=== PATIENT | female | born 1980 | race Caucasian/White ===

== ENCOUNTER 2020-07-22 13:19 | Outpatient (CLI) | payer BC, SELFPAY | END 2020-07-22 13:20 | disposition home or self-care (01) | LOC: ANHSURGERY 13:24 | PROVIDERS: Visit Provider Obstetrics & Gynecology | DX: Z01.812 Encounter for preprocedural laboratory examination (principal); R10.2 Pelvic and perineal pain | CPT/HCPCS: 36415; 86850; 86900; 86901 ==

== ENCOUNTER 2020-07-24 02:29 | Day surgery (SDC) | payer BC, SELFPAY ==
[2020-07-15 14:04] VITALS: BMI 47.2
[2020-07-24] VITALS (12 sets, daily range): BP systolic 120–167; BP diastolic 68–96; PULSE 80–107; RESP 14–24; TEMP 36–36.7; O2SAT 94–100
--- NOTE | 2020-07-24 04:21 | PM.IMHP ---
H&P: HPI History of Present Illness Date/Time: 07/24/20 04:21 Patient is a using tubal sterilization for control. She has a long history of menorrhagia and dysfunctional uterine bleeding and severe dysmenorrhea. She has tried IUD in the past did not do well with the IUD. She started having increasing menorrhagia with heavy and prolonged periods in 2019. She has been receiving iron infusion. She had a pelvic ultrasound in February which showed endometrium mildly thickened which was is not uncommon but she does have a strong family history of endometrial cancer with her mother. She had a subsequent endometrial biopsy in Mar 2020 which was negative for hyperplasia or cancer. It showed proliferative endometrium with synctial metaplasia. She was offered an endometrial ablation by prior provider and declined due to concern for possible difficulty with being able to evaluate the endometrium in the future after the ablation, with her being at increased risk for endometrial cancer. She has a long history of anemia which may be due in part to prior gastric bypass and history of menorrhagia. She also has severe dysmenorrhea. 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 She was started on the DepoProvera in 2020 which did help the menorrhagia. She stated the dysmenorrhea was still present. She does not want to continue the DepoProvera indefinitely and continues to desire definitive treatment with hysterectomy. She does have urine leakage and has been evaluated and not a candidate for sling. She does have a history years ago where she was told she had an elevated homocysteine level and was concerned regarding risk of venous thromboembolism. The subsequent homocysteine level corrected with increase folic acid. She has taken increase folic acid since gastric bypass. She has been counseled regarding surgical options of hysterectomy to include robotic assisted laparoscopic versus LAVH or abdominal hysterectomy. She desires to keep her cervix. She is afraid that sex may feel different with the cervix gone. She has been informed of risk and benefit of supracervical vs total hysterectomy. She has been recommended to keep her ovaries. She has been informed of risk of future intervention if any abnormality with ovaries that may require surgical intervention. Informed of risk of early menopause. She desires to keep ovaries unless concern for abnormality of one or both ovaries. Chief Complaint: Heavy and prolonged bleeding and cramping. Review of Systems Review of Systems: All systems reviewed & are unremarkable except as noted in HPI and below Cardiovascular: Cardiovascular: Reports no additional cardiovascular complaints, Denies chest pain and Denies dyspnea Respiratory: Respiratory: Reports no additional respiratory complaints and Denies dyspnea Gastrointestinal: Gastrointestinal: Reports abdominal pain, Denies change in bowel habits, Denies diarrhea, Denies nausea and Denies vomiting Genitourinary: Genitourinary: Reports pelvic pain Musculoskeletal: Musculoskeletal: Reports back pain Integumentary/Breasts: Skin/Breast: Reports system reviewed and no additional complaints, except as docu Neurologic: Reports system reviewed and no additional complaints, except as documented Endocrine: Endocrine: Reports no additional endocrine complaints Hematologic/Lymphatic: Hematologic/Lymphatic: Reports no additional hematologic/lymphatic complaints PMFSH Past Medical History Medical History Anxiety and depression Asthma Eating disorder Environmental allergies Hypothyroidism Surgical History Surgical History H/O tubal ligation History of section History of cholecystectomy History of gastric bypass [place] teeth removed Family History Family His
[2020-07-24 06:48] LABS: Hematocrit 41.9 % (37.0-47.0); Hemoglobin 14.4 g/dL (12.0-15.0); Mean Corpuscular HGB Conc 34.4 g/dl (32-36); Mean Corpuscular Hemoglobin 28.6 pg (26-34); Mean Corpuscular Volume 83.3 fl (80-100); Mean Platelet Volume 9.5 fl (7.4-10.4); Platelet Count Result 232 k/mm3 (150-375); Red Blood Count 5.03 M/mm3 (4.2-5.4); White Blood Count 8.3 K/mm3 (4.5-10.0)
--- NOTE | 2020-07-24 06:55 | WPDANESEPPF ---
Anes - Initial Pre Proc Eval Procedure: Operation Date: 07/24/20 07:30 Proposed Procedures p Robotic Assisted Hysterectomy With Bilateral Salpingectomy - Layo Orozco MD Date/Time: 07/24/20 06:55 Surgeon: Layo Orozco MD Pre Op Diagnosis: Abn Bleeding, Pelvic Pain Patient Data Age: 39 Gender: F Height: 5 ft 4 in Weight: 122.4 kg Allergies Allergy/AdvReac Type Severity Reaction Status Date / Time clavulanic acid Allergy Severe SEVERE Verified 07/24/20 06:06 NAUSEA AND VOMITING meloxicam Allergy Severe Rash Verified 07/24/20 06:06 latex Allergy Mild RASH Verified 07/24/20 06:06 tomato Allergy Mild Rash Verified 07/24/20 06:06 doxycycline Allergy Unknown Nausea and Verified 07/24/20 06:06 Vomiting NSAIDS (Non-Steroidal Allergy Unknown Rash Verified 07/24/20 06:06 Anti-Inflamma Home Medications Medication Instructions Recorded Confirmed Type hydroxyzine HCl 10 mg tablet 10 mg PO DAILY 04/10/20 07/24/20 History hydroxyzine HCl 25 mg tablet 25 mg PO HS 04/10/20 07/24/20 History levocetirizine 5 mg tablet 5 mg PO HS 04/10/20 07/24/20 History naltrexone 8 mg-bupropion 90 mg 1 tablet PO BID 04/10/20 07/24/20 History tablet,extended release medroxyprogesterone 150 mg/mL 150 mg IM [id number] #1 ml 04/24/20 07/23/20 Rx intramuscular suspension oxybutynin chloride 10 mg PO HS 07/15/20 07/24/20 History albuterol sulfate 90 mcg/actuation 1 inh INHALATION Q4H PRN 07/22/20 07/24/20 History aerosol inhaler multivitamin 1 tablet PO DAILY 07/22/20 07/24/20 History Laboratory Tests 07/24/20 06:41 WBC 8.3 K/mm3 K/mm3 (4.5-10.0) RBC 5.03 M/mm3 M/mm3 (4.2-5.4) Hgb 14.4 g/dL g/dL (12.0-15.0) Hct 41.9 % % (37.0-47.0) MCV 83.3 fl fl (80-100) MCH 28.6 pg pg (26-34) MCHC 34.4 g/dl g/dl (32-36) RDW 15.0 % H % (11.5-14.5) Plt Count 232 k/mm3 k/mm3 (150-375) MPV 9.5 fl fl (7.4-10.4) Patient hx anesthesia problems: other (vertigo) Family hx anesthesia problems: none PMFSH Past Medical History Medical History Anxiety and depression Asthma Eating disorder Environmental allergies Hypothyroidism Surgical History Surgical History H/O tubal ligation History of section History of cholecystectomy History of gastric bypass [place] teeth removed Family History Family History Mother Hypertension Family history of diabetes mellitus in first degree relative Family history of malignant neoplasm of uterus Father Family history of kidney disease Family history of chronic obstructive pulmonary disease Family history of heart disease in male family member before age 55 Other Diabetes mellitus Social History Social History Smoking status: Never smoker Second hand tobacco smoke exposure: No Alcohol intake: never Living arrangements: with family Gender identity (if verbalized by the patient): Female Spiritual care concerns: No Anes - Eval Final PreProcedure Day of Procedure 07/24/20 06:55 Patient weight: morbidly obese Heart: regular rate and rhythm Lungs: decreased breath sounds Airway: Mallampati scale class II and special considerations poor dentition (lower left) Neurological: alert and oriented Last oral intake: >/= 8 hours ASA classification: III Emergent: no Anesthetic plan: proceed Anesthesia type and monitoring: general ETT and standard monitoring Informed Consent: The patient's anesthetic plan and its attendant risks and benefits were discussed with the patient/family/POA. Questions were solicited and answers provided to the satisfaction of the patient/family/POA.
[2020-07-24] MEDS: ACETAMINOPHEN 500 MG TABLET 1000 MG PO (07:04)
[2020-07-24] MEDS: LACTATED RINGERS 1,000 ML 30 ML IV CONT ×2 (07:04→11:21)
[2020-07-24] MEDS: HEPARIN SODIUM 5,000 UNITS/ML VIAL 5000 UNITS SUB-Q ×2 (07:07→21:00)
--- NOTE | 2020-07-24 07:23 | WPDHPUPDATE1 ---
History and Physical Update Update Date/Time: 07/24/20 07:23 History and Physical has been reviewed, including an updated exam of the patient. There are NO changes in the patient's condition. Risks, benefits, and alternatives have been discussed and questions answered. Patient agrees to proceed with procedure.
[2020-07-24] MEDS: SCOPOLAMINE 1.5 MG PATCH TRANSDERM (07:30)
[2020-07-24] MEDS: ceFAZolin 3 GM/D5W 100 ML 100 ML IVPB (07:32)
[2020-07-24] MEDS: BUPIVACAINE HCL 0.5% PF 30 ML VIAL INFILTRATE (08:12)
--- NOTE | 2020-07-24 09:50 | SUR.OPER ---
patient maintains positioning and u/a remains clear and yellow
--- NOTE | 2020-07-24 11:13 | P.OPB_ITS ---
Procedure Note - Brief Procedure Note - Brief Date of procedure: 07/24/20 Pre-op diagnosis: Abn Bleeding, Pelvic Pain 3.Extensive adhesions in the lower abdomen and pelvis Post-op diagnosis: other (1. Abnormal uterine bleeding 2. Pelvic pain 3. Dysmenorrhea 4. Dysparenia 5. Pelvic adhesions) Procedure performed: 1. Laparoscopic robotic assisted supracervical hysterectomy. 2 . Bilateral salpingectomy. 3. Lysis of adhesions. Anesthesia: GETA Surgeon: Layo Orozco MD Airline Attendant: Héctor Estimated blood loss (mL): 20 IV fluids (mL): 1,500 Urine output (mL): 100 Drains: No Packing: No Pathology: other (Uterus, fallopian tube segments of right and left) Complications: No immediate complications Condition: stable Disposition: PACU Findings: Extensive adhesions of the omentum to the mid abdomen and adhesions of omentum to anterior uterus and lower abdominal wall. Normal fallopian tubes and ovaries.
[2020-07-24] MEDS: fentaNYL CITRATE INJ (*CRX) 100 MCG/2 ML VIAL 25 MCG IV PUSH ×4 (11:25→11:39)
[2020-07-24] MEDS: HYDROmorphone HCL INJ (*CRX) 1 MG/ML SYR IV PUSH ×2 (11:45→12:18)
--- NOTE | 2020-07-24 11:48 | SUR.PHASEI ---
O2 removed at 1147.
[2020-07-24] MEDS: ONDANSETRON INJ 4 MG/2 ML VIAL IV PUSH (12:06)
[2020-07-24] MEDS: diazePAM INJ (*CRX) 10 MG/2 ML SYRINGE 5 MG IV PUSH (12:39)
--- NOTE | 2020-07-24 13:00 | PC.NURSE ---
This patient, Tatiana Osborne, was received from PACU per bed to room 279. Patient/family oriented to unit policies and routines
[2020-07-24] MEDS: SIMETHICONE 80 MG TAB.CHEW PO ×4 (13:18→22:50)
[2020-07-24] MEDS: MORPHINE SULFATE (*CRX) 4 MG/ML INJ IV PUSH (13:18)
[2020-07-24] MEDS: DEXTROSE 5%/0.45% SOD CHL 1,000 ML 125 ML IV CONT (13:20)
[2020-07-24] MEDS: KETOROLAC 30 MG/ML VIAL (*BKC) IV PUSH ×2 (14:42→19:00)
[2020-07-24] MEDS: ceFAZolin 2 GM/D5W 50 ML 2 GM/50 ML BAG IVPB (15:59)
[2020-07-24] MEDS: HYDROcodone/acetaminophen (*CRX) 5-325 MG TABLET 1 TAB PO ×2 (19:00→22:50)
[2020-07-24] MEDS: SENNA/DOCUSATE SODIUM TABLET 2 TAB PO (21:00)
[2020-07-24] MEDS: hydrOXYzine HCL 25 MG TABLET PO (21:00)
[2020-07-25] MEDS: HYDROcodone/acetaminophen (*CRX) 5-325 MG TABLET 1 TAB PO
[2020-07-25] MEDS: SIMETHICONE 80 MG TAB.CHEW PO ×3 (04:22→08:48)
[2020-07-25] MEDS: KETOROLAC 30 MG/ML VIAL (*BKC) IV PUSH ×2 (04:22→11:17)
[2020-07-25] MEDS: HYDROcodone/acetaminophen (*CRX) 10-325 MG TABLET 1 TAB PO ×2 (04:22→08:43)
[2020-07-25 04:25] VITALS: BP 135/78; PULSE 85; RESP 16; TEMP 36.7
--- NOTE | 2020-07-25 07:01 | PM.PROC ---
Procedure Note - Detailed Date of procedure: 02/25/19 Pre-op diagnosis: Abn Bleeding, Pelvic Pain Post-op diagnosis: other (abdominal pelvic adhesions) Procedure performed: 1. Robotic assisted laparoscopic supracervical hysterectomy. 2. Bilateral salpingectomy. 3. Extensive lysis of adhesions in lower abdomen pelvis. Description of procedure: After informed consent was obtained patient was taken to the operating room and general endotracheal anesthesia was administered. She was placed in low lithotomy position and prepped and draped in sterile fashion. Prior to being prepped and draped and exam under anesthesia was performed and no masses were palpated uterus palpated to be normal size and fixed anteriorly. Attention was then turned to the vagina. A Keyes catheter had been placed in bladder. Weighted speculum was placed in the vagina. The anterior vaginal wall was retracted with a retractor. A single-tooth tenaculum was placed on the anterior lip of the cervix the uterus was sounded to 10 cm the cervix was dilated to an 8 hua dilator. The uterine manipulator was inserted and the bulb inflated a size 8 uterine manipulator was used. A 3.0 cm colp cup was secured in the vagina. Prior to securing the cup the single-tooth tenaculum was removed from the cervix. Attention was then turned to the abdomen. With sterile gloves a horizontal incision was made 2cm above the umbilicus with the scalpel after injecting .5% Marcaine subcutaneously which was injected at each incision site prior to incision. The subcutaneous tissue was dissected down with s restractors. The anterior fascia grasped with clamp and incised. The muscles retracted and the posterior fascia grasped with clamps and incised. Peritoneum was entered. Hisson port inserted after the fascia was secured with 0. vicryl.A pneumoperitoneum on low flow was started. At that time the patient had a bradycardic episode of the insufflation was stopped. Heart increased the flow was started back on low. A pnuemoperitoneum of 15 mm per mercury was obtained and patient tolerated this.. Attention was then turned to the left side of the abdomen and a robotic port was inserted under laparoscopic visualization. Attention was then turned to the right side parallel to this and a robotic port was inserted under laparoscopic visualization. Superior and medial to this a surveyor instrument assistant port was inserted under laparoscopic visualization. At left side of abdomen a robotic port was inserted under laparoscopic visualization The patient was placed in Trendelenburg to allow the intestinal organs out of the pelvis. The robotic arms were then attached to the ports. Attention was then turned to the surgery console. The large mid lower abdominal adhesion of omentum was lysed from abdominal wall. This allowed full visualization of pelvis. Attention was turned to the right round ligament which was cauterized and incised. The anterior leaf of the broad ligament was dissected anteriorly to the area of the dense scarring of uterus. The careful dissection and lysis of adhesions at this area took approximately 30minutes to remove the adhesions from the abdominal wall and the bladder. The anterior leaf of the broad ligament was further dissected anteriorly to the vesicouterine peritoneum. The bladder was dissected from the lower uterine segment with lysing adhesion. Attention was then turned to the ovarian ligament which was then cauterized and incised. The broad ligament was further cauterized and ascending uterine vessels were cauterized. The posterior leaf of broad ligament was dissected. The uterine arteries were skeletonized. Attention was then turned to the left round ligament which was cauterized and incised. The anterior leaf of the broad ligament was further incised to the vesicouterine peritoneum. The adhesions of the uterus on the left was further lysed from anterior abdominal wall and bladder peritoneum.The bladder was further dissected from the rest o
[2020-07-25 08:00] VITALS: BP 132/73; PULSE 90; RESP 18; RESP 20; TEMP 36.8
[2020-07-25] MEDS: HEPARIN SODIUM 5,000 UNITS/ML VIAL 5000 UNITS SUB-Q (08:45)
--- NOTE | 2020-07-25 10:33 | WPDANESPN ---
Anes - Prog Note Post-Op Date/Time: 07/25/20 10:33 Cardiovascular status: normal Respiratory status: normal Airway patency: baseline Mental status: baseline Post-Op hydration status: normal Vital Signs: Last Vital Signs Temp 36.8 C 07/25/20 08:00 Pulse 90 07/25/20 08:00 Resp 20 07/25/20 08:00 BP 132/73 07/25/20 08:00 Pulse Ox 97 07/24/20 13:05 Pain Score (VAS): 3 I/O: Intake & Output 07/24/20 07/25/20 07/25/20 23:59 07:59 15:59 Intake Total 300 700 Output Total 800 100 Balance -500 600 Laboratory Tests 07/25/20 04:30 07/25/20 04:30 Hgb 13.0 Hct 37.0 Post-procedural complaints: none Patient Feedback: Patient satisfied with anesthetic care.
== END 2020-07-25 11:42 | disposition home or self-care (01) ==
LOC: ANHSURGERY 05:56 → ANHOB2 12:58
PROVIDERS: Visit Provider Obstetrics & Gynecology
PROC: (CPT 58542; principal; 2020-07-24 07:30)
DX: N93.9 Abnormal uterine and vaginal bleeding, unspecified (principal); R10.2 Pelvic and perineal pain; N94.6 Dysmenorrhea, unspecified; N73.6 Female pelvic peritoneal adhesions (postinfective); N80.0 Endometriosis of uterus; D64.9 Anemia, unspecified; Z98.84 Bariatric surgery status; J45.909 Unspecified asthma, uncomplicated; E03.9 Hypothyroidism, unspecified; F41.8 Other specified anxiety disorders; Z79.51 Long term (current) use of inhaled steroids; E66.01 Morbid (severe) obesity due to excess calories; Z68.42 Body mass index [BMI] 45.0-49.9, adult
CPT/HCPCS: 58542; S2900; 36415; 85014; 85018; 85027; 88307; 99199; A9270; J0690; J1100; J1170; J1644; J1885; J2250; J2270; J2405; J2704; J2710; J3010; J3360; J7030; J7120